=== PATIENT | female | born 1990 | race Caucasian/White ===

== ENCOUNTER 2016-05-29 14:15 | Emergency (ER) | payer OTHER ==
[~2016-05-29] VITALS: Ht 165.1 cm; Wt 60.3 kg
--- NOTE | 2016-05-29 14:30 | NUR ---
PT CAME IN FOR N/V SINCE THIS AM. UNABLE TO KEEP WATER DOWN. GEN WEAKNESS. SEEN BY MD FOR EVAL. SAFETY AND COMFORT MEASURES PROVIDED. WILL MONITOR.
--- NOTE | 2016-05-29 15:20 | NUR ---
IV ACCESS STARTED. PT MEDICATED ORDERED.
[2016-05-29] MEDS ORDERED: IV NS 0.9% 1,000 ML BAG IV ONE (15:30)
[2016-05-29] MEDS ORDERED: ONDANSETRON HCL/PF 4 MG/2 ML VIAL IVP ONE (15:30)
[2016-05-29] MEDS ORDERED: IV SET PRIMARY PUMP SET 1 EA INFUS.SET MC ONE (15:44)
[2016-05-29] MEDS ORDERED: ONDANSETRON HCL/PF 4 MG/2 ML VIAL ONE (15:44)
[2016-05-29] MEDS ORDERED: IV NS 0.9% 1,000 ML ONE (15:44)
[2016-05-29 16:16] LABS: BASOPHILS # (AUTO) 0.2 /CMM (0.0-0.2); BASOPHILS % (AUTO) 1.8 % (0.0-2.0); EOSINOPHILS % (AUTO) 0.1 % (0.0-6.0); HEMATOCRIT 45 % (33-45); HEMOGLOBIN 14.9 g/dL (11.5-14.8); LYMPHOCYTES # (AUTO) 0.5 /CMM (0.8-4.8); MEAN CORPUSCULAR HEMOGLOBIN 30 PG (26.0-33.0); MEAN CORPUSCULAR HGB CONC 33 g/dl (31.0-36.0); MEAN CORPUSCULAR VOLUME 92 fL (82-100); MONOCYTES # (AUTO) 0.4 /CMM (0.1-1.30); MONOCYTES % (AUTO) 3.6 % (2.0-12.0); NEUTROPHILS # (AUTO) 9.7 /CMM (1.8-8.9); NEUTROPHILS % (AUTO) 89.5 % (43.0-81.0); PLATELET COUNT (AUTO) 215 /CMM (150-450); RDW COEFFICIENT OF VARIATION 12.2 (11.5-15.0); RED BLOOD CELL COUNT(AUTO) 4.95 MIL/uL (4.0-5.2); WHITE BLOOD COUNT (AUTO) 10.8 K/uL (4.3-11.0)
[2016-05-29 16:31] LABS: CALCIUM, SERUM 9.7 mg/dL (8.5-10.1); CREATININE 0.8 mg/dL (0.6-1.3); POTASSIUM 3.9 mmol/L (3.5-5.1)
[2016-05-29 16:37] LABS: ALBUMIN 4.6 g/dL (3.4-5.0); BILIRUBIN,DIRECT 0.1 mg/dL (0.0-0.2); BILIRUBIN,TOTAL 1.1 mg/dL (0.2-1.0); TOTAL PROTEIN, SERUM 8.5 g/dL (6.4-8.2)
--- NOTE | 2016-05-29 17:30 | NUR ---
IV removed. Catheter intact and site benign. Pressure and 4x4 applied to site. No bleeding noted.
--- NOTE | 2016-05-29 17:30 | NUR ---
Patient discharged to home in stable condition. Written and verbal after care instructions given. Patient verbalizes understanding of instruction. Pt ambulatory with a steady gait.
[2016-05-29 18:04] VITALS: BP 120/68
== END 2016-05-29 18:05 | disposition home or self-care (01) ==
LOC: ER 14:19
DX: R11.2 Nausea with vomiting, unspecified (principal); F10.20 Alcohol dependence, uncomplicated
CPT/HCPCS: 36415; 80048; 80076; 83690; 85025; 96361; 96374; 99284; A4606; J2405; J7030; Z7610